=== PATIENT | male | born 1970 | race Caucasian/White ===

== ENCOUNTER 2023-03-20 16:37 | Emergency (ER) | payer BC, OTHER ==
[~2023-03-20] VITALS: Ht 180.3 cm; Wt 121.8 kg
[2023-03-20 17:01] VITALS: BP 143/95; PULSE 92; RESP 18; TEMP 98.5; O2SAT 95
--- NOTE | 2023-03-20 18:20 | NUR ---
CALLED POISON CONTROL AT .
== END 2023-03-20 18:38 | disposition home or self-care (01) ==
LOC: ER 16:37
DX: T59.91XA Toxic effect of unspecified gases, fumes and vapors, accidental (unintentional), initial encounter (principal); I10 Essential (primary) hypertension; Y92.89 Other specified places as the place of occurrence of the external cause
CPT/HCPCS: 99281